=== PATIENT | female | born 1955 | race Caucasian/White ===

== ENCOUNTER 2017-08-17 00:02 | Inpatient (IN) | payer BC ==
[~2017-08-17] VITALS: Ht 160 cm; Wt 74.8 kg
[~2017-08-17 00:02] MED LIST: ALBUAER19 INH; AMB5 PO; AMOX500C3 PO; ATV5X PO; EFFSR150 PO; MRLP17X PO; MULT-506 PO; PRLSR20 PO; SNG10 PO; SYMIN160 INH; SYN75 PO; VENL75CA73 PO
[2017-08-17] MEDS ORDERED: SODIUM CHLORIDE 0.9% 1000ML 1,000 ML IV STA (00:23)
[2017-08-17] MEDS ORDERED: HYDROmorphone INJ 1 MG/ML SYR IV STA (00:23)
[2017-08-17] MEDS ORDERED: ONDANSETRON INJ 2 MG/ML 2 ML VIAL IV STA (00:23)
--- NOTE | 2017-08-17 00:23 | EMERGENCY ROOM VISIT NOTE ---
History Report prepared by Danish: Darío Clifton Under the Supervision of: Dr. Keanu Morrison M.D. First contact with patient: 00:17 Chief Complaint: DENTAL PAIN Stated Complaint: ABSCESSED TOOTH TOP LFT-FEVER,PAIN Nursing Triage Summary: patient states yesterday she was seen at her dentist to have an abcessed tooth drained and was placed on oral antibiotics. area to left side of face has increased swelling and pain. patient states she was given narcotic pain medication that is not helping. History of Present Illness The patient is a 62 year old female who presents to the Emergency Room with complaints of constant dental pain beginning 4 days ago. The patient states that she began to experience mild pain 4 days ago. She notes that when she woke up the next day, her pain was much worse. She reports that she also has facial swelling that began yesterday. The patient states that she went into the dentist yesterday, where she had a partial root canal done. She notes that her symptoms worsen when she swallows. She reports that she took pain medication 4 hours ago and is currently on amoxicillin. The patient states that she has no history of diabetes and infections, but has had an abscess in the past. Source of History: patient Onset: 4 days ago Position: teeth Timing: constant Modifying Factors (Worsening): other (swallowing) Note: She also complains of facial swelling. Review of Systems See HPI for pertinent positives & negatives. A total of 6 systems reviewed and were otherwise negative. 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 (4) GERD (gastroesophageal reflux disease) (5) Hypothyroidism (6) Seasonal allergic rhinitis Surgical Problems: (1) H/O lumpectomy (2) H/O mastectomy (3) H/O: hysterectomy (4) Hx of cholecystectomy (5) S/P eron (6) S/P left mastectomy (7) S/P partial thyroidectomy (8) S/P IVAN (total abdominal hysterectomy) Family History Diabetes mellitus FHx: cancer FHx: heart disease Hypertension Social History Smoking Status: Never Smoker Marital Status: Housing Status: lives with family Occupation Status: employed Current/Historical Medications Scheduled Amoxicillin (Amoxil), 500 MG PO TID Bupropion Hcl (Bupropion Hcl Er), 100 MG PO BID Fluticasone Propionate (Nasal) (Flonase Allergy Relief), 2 SPRAY NA DAILY Levothyroxine Sodium (Synthroid), 75 MCG PO QAM Multivitamin (Multivitamin), 1 TAB PO QAM Venlafaxine Hcl (Venlafaxine Hcl Er), 75 MG PO DAILY Scheduled PRN Albuterol Hfa (Ventolin Hfa), 2 PUFFS INH Q6H PRN for SOB/Wheezing Budesonide/Formoterol Fumarate (Symbicort 160/4.5 Inhaler), 1 PUFF INH BID PRN for SOB/Wheezing Lorazepam (Lorazepam), 0.5 MG PO DAILY PRN for Anxiety Omeprazole (Prilosec), 20 MG PO DAILY PRN for Heartburn Zolpidem Tartrate (Zolpidem Tartrate), 5 MG PO HS PRN for Insomnia Allergies Coded Allergies: Morphine (Unverified Allergy, Mild, epigastric MUSCLE SPASMS, 08/17/17) Sulfa Antibiotics (Verified Allergy, Unknown, HIVES, 08/17/17) Codeine (Verified Adverse Reaction, Mild, NAUSEA, 08/17/17) NAUSEA Physical Exam Vital Signs Date Time Temp Pulse Resp B/P (MAP) Pulse Ox O2 Delivery O2 Flow Rate FiO2 08/17/17 03:11 82 20 132/86 99 Nasal Cannula 4.0 08/17/17 01:41 89 16 149/94 92 Room Air 08/17/17 00:06 37.3 89 20 145/99 96 Room Air Physical Exam GENERAL: Patient is uncomfortable appearing and in moderate distress. HEENT: No acute trauma, normocephalic atraumatic, mucous membranes moist, no nasal congestion, no scleral icterus. Large swelling of left lower face, erythema primarily over maxillary sinus, carious exposed posterior upper left molar which is severely tender to palpation. NECK: No stridor, no adenopathy, no meningismus, trachea is midline. LUNGS: No dyspnea. Clear to auscultation and equal bilaterally. No wheeze, no rhonchi. HEART: Regular rate and rhythm. No murmurs, rubs, gallops appreciated. EXTREMITIES: Normal motion all extremities, no cyanosis, no edema. NEUROLOGIC: Alert and oriented, no acute motor or sensory deficits, no focal weakness, cranial nerves grossly intact. SKIN: No rash, no jaundice, no diaphoresis. Medical Decision & Procedures ER Provider Diagnostic Interpretation: Radiology results and stated below per my review and radiologist interpretation: CT FACIAL: Swelling and phlegmon involving the left side of the face. No drainable collection. Cervical adenopathy. Sinus mucosal thickening. Thickening and soft tissues of the nasal and hypopharynx. Secretions and debris in the hypopharynx. Retropharyngeal carotids, anatomic variant. Dental related disease with dental caries and periapical lucency on the left side. Radiologist: Ildefonso Perez M.D. Laboratory Results 08/17/17 00:55 Red Blood Count 4.90, Mean Corpuscular Volume 89.6, Mean Corpuscular Hemoglobin 31.4, Mean Corpuscular Hemoglobin Concent 35.1, Mean Platelet Volume 9.1, Neutrophils (%) (Auto) 79.5, Lymphocytes (%) (Auto) 13.4, Monocytes (%) (Auto) 5.8, Eosinophils (%) (Auto) 0.8, Basophils (%) (Auto) 0.3, Neutrophils # (Auto) 5.05, Lymphocytes # (Auto) 0.85, Monocytes # (Auto) 0.37, Eosinophils # (Auto) 0.05, Basophils # (Auto) 0.02 Test 08/17/17 00:55 08/17/17 01:03 White Blood Count 6.35 K/uL (4.8-10.8) Red Blood Count 4.90 M/uL (4.2-5.4) Hemoglobin 15.4 g/dL (12.0-16.0) Hematocrit 43.9 % (37-47) Mean Corpuscular Volume 89.6 fL (80-100) Mean Corpuscular Hemoglobin 31.4 pg (25-34) Mean Corpuscular Hemoglobin Concent 35.1 g/dl (32-36) Platelet Count 259 K/uL (130-400) Mean Platelet Volume 9.1 fL (7.4-10.4) Neutrophils (%) (Auto) 79.5 % Lymphocytes (%) (Auto) 13.4 % Monocytes (%) (Auto) 5.8 % Eosinophils (%) (Auto) 0.8 % Basophils (%) (Auto) 0.3 % Neutrophils # (Auto) 5.05 K/uL (1.4-6.5) Lymphocytes # (Auto) 0.85 K/uL (1.2-3.4) Monocytes # (Auto) 0.37 K/uL (0.11-0.59) Eosinophils # (Auto) 0.05 K/uL (0-0.5) Basophils # (Auto) 0.02 K/uL (0-0.2) RDW Standard Deviation 45.3 fL (36.4-46.3) RDW Coefficient of Variation 13.9 % (11.5-14.5) Immature Granulocyte % (Auto) 0.2 % Immature Granulocyte # (Auto) 0.01 K/uL (0.00-0.02) Prothrombin Time 10.0 SECONDS (9.0-12.0) Prothromb Time International Ratio 1.0 (0.9-1.1) C-Reactive Protein 9.11 mg/dl (0-0.29) Bedside Hemoglobin 15.3 g/dl (12.0-16.0) Bedside Hematocrit 45 % (37-47) Bedside Sodium 139 mEq/L (135-144) Bedside Potassium 4.1 mEq/L (3.3-5.0) Bedside Chloride 97 mEq/L (101-112) Bedside Total CO2 28 mEq/l (24-31) Anion Gap 18.0 mmol/L (16-25) Bedside Blood Urea Nitrogen 13 mg/dl (7-18) Bedside Creatinine 0.8 mg/dl (0.6-1.3) Bedside Glucose (other) 104 mg/dl (70-99) Bedside Ionized Calcium (Luiza) 1.06 mmol/l (1.12-1.32) Laboratory results as reviewed by me. Medications Administered Medications (Trade) Dose Ordered Sig/Leticia Route Start Time Stop Time Status Last Admin Dose Admin Hydromorphone HCl (Dilaudid Inj) 1 mg NOW STAT IV 08/17/17 00:23 08/17/17 00:26 DC 08/17/17 01:08 1 MG Ondansetron HCl (Zofran Inj) 4 mg NOW STAT IV 08/17/17 00:23 08/17/17 00:26 DC 08/17/17 01:07 4 MG Sodium Chloride 1,000 ml @ 999 mls/hr Q1H1M STAT IV 08/17/17 00:23 08/17/17 01:23 DC 08/17/17 01:07 999 MLS/HR Clindamycin Phosphate 600 mg/ Dextrose 54 ml @ 100 mls/hr ONE ONCE IV 08/17/17 00:30 08/17/17 01:02 DC 08/17/17 01:08 100 MLS/HR ED Course 0018: The patient was evaluated in room B12. A complete history and physical exam was performed. 0215: Upon reevaluation, the patient is stable. Discussed results and treatment plan with the patient. She verbalized understanding and agreement with the treatment plan. Discussed the patient's case with Zaida Siu. The patient will be evaluated for further management. Medical Decision Pleasant 62 yr old female with large left facial swelling secondary to dental infection. On amox with worsening swelling. Increased swelling even while here. Does have some oropharyngeal edema though no shob/swallowing difficulty nor does she complain of feeling of full throat/mouth thus I suspect this may be more chronic than from this current infection (but one more thing to monitor closely). She has significant > 50% left face swelling/erythema, has been on amox, has phlegmon on CT and lives ~ 1 hr away, thus I feel that bringing in for IV abx is completely reasonable. She is not septic at time of admission. Medication Reconcilliation Current Medication List: was personally reviewed by me Blood Pressure Screening Patient's blood pressure: Elevated blood pressure Elevated blood pressure will be monitored by hospitalist. Consults Time Called: [phone] Consulting Physician: Zaida Siu Returned Call: [phone] Discussed the patient's case. The patient will be evaluated for further treatment and disposition. Impression Primary Impression: Facial cellulitis Scribe Attestation The scribe's documentation has been prepared under my direction and personally reviewed by me in its entirety. I confirm that the note above accurately reflects all work, treatment, procedures, and medical decision making performed by me. Departure Information Dispostion Being Evaluated By Hospitalist Edgardo Best M.D. (PCP) Patient Instructions My [facility]
[2017-08-17] MEDS ORDERED: CLINDAMYCIN IV 600 MG in DEXTROSE 5% 50ML 50 ML IV ONE (00:30)
[2017-08-17 01:09] LABS: BASO % 0.3 %; BASO ABS # 0.02 K/uL (0-0.2); EOS % 0.8 %; EOS ABS # 0.05 K/uL (0-0.5); HEMATOCRIT 43.9 % (37-47); HEMOGLOBIN 15.4 g/dL (12.0-16.0); IG# 0.01 K/uL (0.00-0.02); LYMPH % 13.4 %; LYMPH ABS # 0.85 K/uL (1.2-3.4); MEAN CELL VOLUME 89.6 fL (80-100); MEAN CORPUSCULAR HEMOGLOBIN 31.4 pg (25-34); MEAN CORPUSCULAR HGB CONC 35.1 g/dl (32-36); MEAN PLATELET VOLUME 9.1 fL (7.4-10.4); MONO % 5.8 %; MONO ABS # 0.37 K/uL (0.11-0.59); NEUT % 79.5 %; NEUT ABS # 5.05 K/uL (1.4-6.5); PLATELET COUNT 259 K/uL (130-400); RED CELL DISTRIBUTION WIDTH CV 13.9 % (11.5-14.5); RED CELL DISTRIBUTION WIDTH SD 45.3 fL (36.4-46.3); WHITE BLOOD COUNT 6.35 K/uL (4.8-10.8)
[2017-08-17 01:27] LABS: ISTAT CREATININE 0.8 mg/dl (0.6-1.3); ISTAT IONIZED CALCIUM 1.06 mmol/l (1.12-1.32); ISTAT POTASSIUM 4.1 mEq/L (3.3-5.0)
[2017-08-17] MEDS ORDERED: OPTIRAY 320 IV PRN (01:45)
[2017-08-17] MEDS ORDERED: BUPR-266 PO (02:31)
[2017-08-17] MEDS ORDERED: VENL150T33 PO (02:32)
[2017-08-17] MEDS ORDERED: VNTHFA/IN INH (02:34)
[2017-08-17] MEDS ORDERED: BUDESONIDE/FORMOTEROL FUMARATE 160/4.5 60 PUFFS/INHALER INH PRN (04:15)
[2017-08-17] MEDS ORDERED: LORAZEPAM 0.5 MG TAB PO PRN (04:15)
[2017-08-17] MEDS ORDERED: ZOLPIDEM TARTRATE 5 MG TAB PO PRN (04:15)
[2017-08-17] MEDS ORDERED: ALBUTEROL HFA 8 GM INHALER INH PRN (04:15)
[2017-08-17] MEDS ORDERED: HYDROmorphone INJ 0.5 MG/0.5 ML SYR IV PRN (04:15)
[2017-08-17] MEDS ORDERED: ACETAMINOPHEN 325 MG TAB PO PRN (04:15)
[2017-08-17] MEDS ORDERED: ONDANSETRON INJ 2 MG/ML 2 ML VIAL IV PRN (04:15)
[2017-08-17] MEDS ORDERED: FLUT0.15 (04:17)
[2017-08-17] MEDS ORDERED: VENL-273 PO (04:17)
--- NOTE | 2017-08-17 04:26 | History and Physical ---
History & Physical Date & Time of Service: Aug 17, 2017 at 04:18 Chief Complaint: Abscessed Tooth Top Lft-Fever,Pain Primary Care Physician: Edgardo Aguilar M.D. History of Present Illness Source: patient, clinic records, hospital records 62 yo F presents with worsening facial pain and swelling after dental procedure earlier today. She reports that pain in her upper jaw area began on SAt (two days ago). Swelling began 24 hours ago and with the pain, she went into her dentist emergently and states that he saw alot of infection and left her with an open root canal. She was sent home with Amoxicillin of which she too two. She then developed a fever that concerned her, and in addition, states that the vicodin she was given did not control her pain well. She was hemodynamically stable and afebrile in the ER but looked uncomfortable so was given Dilaudid 1mg. She dropped her oxygen saturation in response to this and required supplementation. She does have some problems swallowing at baseline but denies any trouble breathing and states that her neck is not swollen and there is no involvement with her eye. She reports a cough two weeks ago but this has since resolved. She otherwise has no symptoms and is on a soft mechanical diet. Past Medical/Surgical History Medical Problems: (1) Depression Status: Chronic (2) Ductal carcinoma in situ (DCIS) of left breast Status: Chronic (3) GERD (gastroesophageal reflux disease) Status: Chronic (4) Hypothyroidism Status: Chronic (5) Seasonal allergic rhinitis Status: Chronic Surgical Problems: (1) S/P eron Status: Chronic (2) S/P left mastectomy Status: Chronic (3) S/P partial thyroidectomy Status: Resolved (4) S/P IVAN (total abdominal hysterectomy) Status: Chronic Family History Diabetes mellitus FHx: cancer FHx: heart disease Hypertension Social History Smoking Status: Never Smoker Smokeless Tobacco Use: No Alcohol Use: none Drug Use: none Marital Status: Housing status: lives with family Occupational Status: employed Immunizations History of Influenza Vaccine: No History of Tetanus Vaccine?: Yes Tetanus Immunization Date: Sep 07, 2010 History of Pneumococcal: Yes History of Hepatitis B Vaccine: No Multi-Drug Resistant Organisms History of MDRO: No Allergies Coded Allergies: Morphine (Unverified Allergy, Mild, epigastric MUSCLE SPASMS, 08/17/17) Sulfa Antibiotics (Verified Allergy, Unknown, HIVES, 08/17/17) Codeine (Verified Adverse Reaction, Mild, NAUSEA, 08/17/17) NAUSEA Home Medications Scheduled Amoxicillin (Amoxil), 500 MG PO TID Bupropion Hcl (Bupropion Hcl Er), 100 MG PO BID Fluticasone Propionate (Nasal) (Flonase Allergy Relief), 2 SPRAY NA DAILY Levothyroxine Sodium (Synthroid), 75 MCG PO QAM Multivitamin (Multivitamin), 1 TAB PO QAM Venlafaxine Hcl (Venlafaxine Hcl Er), 75 MG PO DAILY Scheduled PRN Albuterol Hfa (Ventolin Hfa), 2 PUFFS INH Q6H PRN for SOB/Wheezing Budesonide/Formoterol Fumarate (Symbicort 160/4.5 Inhaler), 1 PUFF INH BID PRN for SOB/Wheezing Lorazepam (Lorazepam), 0.5 MG PO DAILY PRN for Anxiety Omeprazole (Prilosec), 20 MG PO DAILY PRN for Heartburn Zolpidem Tartrate (Zolpidem Tartrate), 5 MG PO HS PRN for Insomnia Review of Systems AT least ten systems were reviewed and negative except as indicated in HPI above. Physical Exam Vital Signs Date Time Temp Pulse Resp B/P (MAP) Pulse Ox O2 Delivery O2 Flow Rate FiO2 08/17/17 04:10 81 20 141/90 99 Room Air 08/17/17 03:11 82 20 132/86 99 Nasal Cannula 4.0 08/17/17 01:41 89 16 149/94 92 Room Air 08/17/17 00:06 37.3 89 20 145/99 96 Room Air General Appearance: WD/WN, no apparent distress Head: normocephalic, atraumatic Eyes: normal inspection, PERRL, sclerae normal ENT: + pertinent finding (L facial swelling with warmth and erythema in the localized area, no redness spreading into the eye or under the chin, no SM LAD, significant swelling in soft palate on L and swelling of pharynx without erythmea. No evidence of pus or open wound) Neck: supple, no adenopathy, trachea midline Respiratory/Chest: lungs clear, normal breath sounds, no respiratory distress, no accessory muscle use Cardiovascular: regular rate, rhythm, no edema, no gallop, no JVD, no murmur, normal peripheral pulses Abdomen/GI: normal bowel sounds, non tender, soft Extremities/Musculoskelatal: normal inspection, no pedal edema Neurologic/Psych: director of events II-XII nml as tested, no motor/sensory deficits, alert, normal mood/affect, oriented x 3 Skin: normal color, warm/dry, no rash, + pertinent finding (facial swelling as above. ) Diagnostics Laboratory Results 08/17/17 00:55 Red Blood Count 4.90, Mean Corpuscular Volume 89.6, Mean Corpuscular Hemoglobin 31.4, Mean Corpuscular Hemoglobin Concent 35.1, Mean Platelet Volume 9.1, Neutrophils (%) (Auto) 79.5, Lymphocytes (%) (Auto) 13.4, Monocytes (%) (Auto) 5.8, Eosinophils (%) (Auto) 0.8, Basophils (%) (Auto) 0.3, Neutrophils # (Auto) 5.05, Lymphocytes # (Auto) 0.85, Monocytes # (Auto) 0.37, Eosinophils # (Auto) 0.05, Basophils # (Auto) 0.02 Test 08/17/17 00:55 08/17/17 01:03 08/17/17 04:07 White Blood Count 6.35 K/uL (4.8-10.8) Red Blood Count 4.90 M/uL (4.2-5.4) Hemoglobin 15.4 g/dL (12.0-16.0) Hematocrit 43.9 % (37-47) Mean Corpuscular Volume 89.6 fL (80-100) Mean Corpuscular Hemoglobin 31.4 pg (25-34) Mean Corpuscular Hemoglobin Concent 35.1 g/dl (32-36) Platelet Count 259 K/uL (130-400) Mean Platelet Volume 9.1 fL (7.4-10.4) Neutrophils (%) (Auto) 79.5 % Lymphocytes (%) (Auto) 13.4 % Monocytes (%) (Auto) 5.8 % Eosinophils (%) (Auto) 0.8 % Basophils (%) (Auto) 0.3 % Neutrophils # (Auto) 5.05 K/uL (1.4-6.5) Lymphocytes # (Auto) 0.85 K/uL (1.2-3.4) Monocytes # (Auto) 0.37 K/uL (0.11-0.59) Eosinophils # (Auto) 0.05 K/uL (0-0.5) Basophils # (Auto) 0.02 K/uL (0-0.2) RDW Standard Deviation 45.3 fL (36.4-46.3) RDW Coefficient of Variation 13.9 % (11.5-14.5) Immature Granulocyte % (Auto) 0.2 % Immature Granulocyte # (Auto) 0.01 K/uL (0.00-0.02) C-Reactive Protein 9.11 mg/dl (0-0.29) Bedside Hemoglobin 15.3 g/dl (12.0-16.0) Bedside Hematocrit 45 % (37-47) Bedside Sodium 139 mEq/L (135-144) Bedside Potassium 4.1 mEq/L (3.3-5.0) Bedside Chloride 97 mEq/L (101-112) Bedside Total CO2 28 mEq/l (24-31) Anion Gap 18.0 mmol/L (16-25) Bedside Blood Urea Nitrogen 13 mg/dl (7-18) Bedside Creatinine 0.8 mg/dl (0.6-1.3) Bedside Glucose (other) 104 mg/dl (70-99) Bedside Ionized Calcium (Luiza) 1.06 mmol/l (1.12-1.32) Results Past 24 Hours Test 08/17/17 00:55 08/17/17 01:03 08/17/17 04:07 Range/Units White Blood Count 6.35 4.8-10.8 K/uL Red Blood Count 4.90 4.2-5.4 M/uL Hemoglobin 15.4 12.0-16.0 g/dL Hematocrit 43.9 37-47 % Mean Corpuscular Volume 89.6 80-100 fL Mean Corpuscular Hemoglobin 31.4 25-34 pg Mean Corpuscular Hemoglobin Concent 35.1 32-36 g/dl Platelet Count 259 130-400 K/uL Mean Platelet Volume 9.1 7.4-10.4 fL Neutrophils (%) (Auto) 79.5 % Lymphocytes (%) (Auto) 13.4 % Monocytes (%) (Auto) 5.8 % Eosinophils (%) (Auto) 0.8 % Basophils (%) (Auto) 0.3 % Neutrophils # (Auto) 5.05 1.4-6.5 K/uL Lymphocytes # (Auto) 0.85 1.2-3.4 K/uL Monocytes # (Auto) 0.37 0.11-0.59 K/uL Eosinophils # (Auto) 0.05 0-0.5 K/uL Basophils # (Auto) 0.02 0-0.2 K/uL RDW Standard Deviation 45.3 36.4-46.3 fL RDW Coefficient of Variation 13.9 11.5-14.5 % Immature Granulocyte % (Auto) 0.2 % Immature Granulocyte # (Auto) 0.01 0.00-0.02 K/uL C-Reactive Protein 9.11 0-0.29 mg/dl Bedside Hemoglobin 15.3 12.0-16.0 g/dl Bedside Hematocrit 45 37-47 % Bedside Sodium 139 135-144 mEq/L Bedside Potassium 4.1 3.3-5.0 mEq/L Bedside Chloride 97 101-112 mEq/L Bedside Total CO2 28 24-31 mEq/l Anion Gap 18.0 16-25 mmol/L Bedside Blood Urea Nitrogen 13 7-18 mg/dl Bedside Creatinine 0.8 0.6-1.3 mg/dl Bedside Glucose (other) 104 70-99 mg/dl Bedside Ionized Calcium (Uliza) 1.06 1.12-1.32 mmol/l Diagnostic Radiology MAXILLOFACIAL CT WITH CONTRAST CLINICAL HISTORY: Left maxillary/facial swelling. COMPARISON STUDY: No previous studies for comparison. TECHNIQUE: Maxillofacial CT was performed following intravenous injection of 93 cc Optiray 320 IV. Coronal and sagittal reformats were viewed. FINDINGS: Visualized portions of the intracranial contents are unremarkable. Retropharyngeal carotids are incidentally noted. There is moderate left inferior facial infiltration. Note is made of a periapical abscess and cavity of the left second maxillary molar. There is an adjacent 1.5 x 0.7 cm rim-enhancing fluid collection along the posterior aspect of this tooth consistent with an abscess. There is mild left maxillary sinus mucosal thickening. Parotid and submandibular glands are unremarkable. Mild asymmetric left-sided cervical lymphadenopathy is likely reactive. IMPRESSION: 1. Periapical abscess and cavity of the left second maxillary molar with an adjacent 1.5 x 0.7 cm abscess. Moderate left inferior facial infiltration consistent with cellulitis. 2. Mild asymmetric left cervical lymphadenopathy which is likely reactive. Impression Assessment and Plan 62 yo F with dental abscess and subsequent facial swelling causing pain. Facial cellulitis 2/2 dental abscess-clindamycin. Consider consulting ENT as OFMS is not available. Hypoxia-temporary 2/2 iatrogenic narcotic, no BAYRON symptoms Hypothyroidism-Synthroid Depression-Welbutrin and Effexor DVT proph-Lovenox Full Code Dispo-to floor DO [facility] Telemetry Resuscitation Status FULL RESUSCITATION VTE Prophylaxis VTE Risk Assessment Done? Y/N: Yes Risk Level: Moderate Given or contraindicated: Enoxaparin (Lovenox)SQ
[2017-08-17] MEDS ORDERED: POLYETHYLENE (MIRALAX) 17 GM PACK PO PRN (04:30)
[2017-08-17 04:53] VITALS: BP 141/90; TEMP 37.3; Ht 160 cm; Wt 74.8 kg
[2017-08-17] MEDS: LEVOTHYROXINE 75 MCG TAB PO SCH (06:16)
[2017-08-17] MEDS: OXYCODONE/ACETAMINOPHEN 7.5-325 TAB PO PRN ×3 (06:19→16:36)
[2017-08-17 07:23] VITALS: BP 103/65; PULSE 75; TEMP 36.6; O2SAT 94
--- NOTE | 2017-08-17 08:17 | DIAGNOSTIC IMAGING REPORT ---
MAXILLOFACIAL CT WITH CONTRAST CLINICAL HISTORY: Left maxillary/facial swelling. COMPARISON STUDY: No previous studies for comparison. TECHNIQUE: Maxillofacial CT was performed following intravenous injection of 93 cc Optiray 320 IV. Coronal and sagittal reformats were viewed. FINDINGS: Visualized portions of the intracranial contents are unremarkable. Retropharyngeal carotids are incidentally noted. There is moderate left inferior facial infiltration. Note is made of a periapical abscess and cavity of the left second maxillary molar. There is an adjacent 1.5 x 0.7 cm rim-enhancing fluid collection along the posterior aspect of this tooth consistent with an abscess. There is mild left maxillary sinus mucosal thickening. Parotid and submandibular glands are unremarkable. Mild asymmetric left-sided cervical lymphadenopathy is likely reactive. IMPRESSION: 1. Periapical abscess and cavity of the left second maxillary molar with an adjacent 1.5 x 0.7 cm abscess. Moderate left inferior facial infiltration consistent with cellulitis. 2. Mild asymmetric left cervical lymphadenopathy which is likely reactive. Electronically signed by: Chris Ludwig M.D. 08/17/2017 8:16 AM Dictated Date/Time: 08/17/2017 7:49 AM
[2017-08-17] MEDS: FLUTICASONE PROPIONATE NA SPR 16 GM BTL SCH (08:23)
[2017-08-17] MEDS: MULTIVITAMIN TAB PO SCH (08:26)
[2017-08-17] MEDS: VENLAFAXINE HCL XR 75 MG CAPXR PO SCH (08:26)
[2017-08-17] MEDS: BuPROPion SR 100 MG TABCR PO SCH ×2 (08:26→20:12)
[2017-08-17] MEDS: PANTOprazole SOD 40 MG TAB PO SCH (08:26)
[2017-08-17] MEDS: ENOXAPARIN 40 MG/0.4 ML SYR SQ SCH (08:28)
[2017-08-17] MEDS: CLINDAMYCIN IV 600 MG in DEXTROSE 5% 50ML 50 ML IV SCH ×2 (09:35→16:36)
[2017-08-17 15:16] VITALS: BP 101/65; PULSE 74; TEMP 36.5; O2SAT 96
--- NOTE | 2017-08-17 17:46 | Progress Note ---
Subjective Date of Service: Aug 17, 2017. Subjective Pt evaluation today including: conversation w/ patient, physical exam, lab review, review of studies, review of inpatient medication list Saw/examined the patient in room 460 Presented to [facility] due to a dental abscess that worsened. She was seen by a dentist on 08/16; started on amoxicillin and had a partial root canal She noticed swelling on the L side of her face and pain worsened, so she presented here. I saw her today, and she feels the swelling has improved. Pain improved and tolerating PO intake. Problem List Medical Problems: (1) Facial cellulitis Status: Acute Review of Systems Constitutional: No fever, No chills ENT: + see HPI, + dental problems, No trouble swallowing Respiratory: No shortness of breath Cardiac: No chest pain Medications Current Inpatient Medications Medications (Trade) Dose Ordered Sig/Leticia Route Start Time Stop Time Status Last Admin Dose Admin Ioversol (Optiray 320) 100 ml UD PRN IV 08/17/17 01:45 08/21/17 01:44 Enoxaparin Sodium (Lovenox Inj) 40 mg DAILY SQ 08/17/17 08:00 09/16/17 08:59 08/17/17 08:28 40 MG Acetaminophen (Tylenol Tab) 650 mg Q4H PRN PO 08/17/17 04:15 09/16/17 04:14 Polyethylene (Miralax Powder Packet) 17 gm DAILY PRN PO 08/17/17 04:30 09/16/17 04:29 Ondansetron HCl (Zofran Inj) 4 mg Q6H PRN IV 08/17/17 04:15 09/16/17 04:14 Clindamycin Phosphate 600 mg/ Dextrose 54 ml @ 100 mls/hr Q8H IV 08/17/17 09:00 08/27/17 08:59 08/17/17 16:36 100 MLS/HR Oxycodone/ Acetaminophen (Percocet 7.5-325MG Tab) 1 tab Q4H PRN PO 08/17/17 04:15 08/31/17 04:14 08/17/17 16:36 1 TAB Hydromorphone HCl (Dilaudid Inj) 0.25 mg Q4H PRN IV 08/17/17 04:15 08/31/17 04:14 Albuterol (Ventolin Hfa Inhaler) 2 puffs Q6H PRN INH 08/17/17 04:15 09/16/17 04:14 Budesonide/ Formoterol Fumarate (Symbicort 160/ 4.5 Inh) 120 puffs BID PRN INH 08/17/17 04:15 09/16/17 04:14 Bupropion HCl (Wellbutrin-Sr Tab) 100 mg BID PO 08/17/17 08:00 09/16/17 08:59 08/17/17 08:26 100 MG Fluticasone Propionate (Flonase Nasal [place]) 2 sprays DAILY NA 08/17/17 08:00 09/16/17 08:59 08/17/17 08:23 2 SPRAYS Levothyroxine Sodium (Synthroid Tab) 75 mcg DAILYBB PO 08/17/17 06:30 09/16/17 06:59 08/17/17 06:16 75 MCG Lorazepam (Ativan Tab) 0.5 mg DAILY PRN PO 08/17/17 04:15 09/16/17 04:14 Multivitamins (Multivitamin Tab) 1 tab QAM PO 08/17/17 08:00 09/16/17 08:59 08/17/17 08:26 1 TAB Venlafaxine HCl (effeXOR EXTENDED REL CAP) 75 mg DAILY PO 08/17/17 08:00 09/16/17 08:59 08/17/17 08:26 75 MG Zolpidem Tartrate (Ambien Tab) 5 mg HS PRN PO 08/17/17 04:15 09/16/17 04:14 Pantoprazole Sodium (Protonix Tab) 40 mg QAM PO 08/17/17 08:00 09/16/17 08:59 08/17/17 08:26 40 MG Objective Vital Signs Date Time Temp Pulse Resp B/P (MAP) Pulse Ox O2 Delivery O2 Flow Rate FiO2 08/17/17 16:10 Room Air 08/17/17 15:16 36.5 74 18 101/65 (77) 96 Room Air 08/17/17 07:50 Room Air 08/17/17 07:23 36.6 75 18 103/65 (78) 94 Room Air 08/17/17 04:53 37.3 20 141/90 Room Air 08/17/17 04:10 81 20 141/90 99 Room Air 08/17/17 03:11 82 20 132/86 99 Nasal Cannula 4.0 08/17/17 01:41 89 16 149/94 92 Room Air 08/17/17 00:06 37.3 89 20 145/99 96 Room Air Physical Exam General Appearance: no apparent distress ENT: + pertinent finding (L side of the face is swollen, warm to touch) Respiratory/Chest: lungs clear, normal breath sounds, no respiratory distress, no accessory muscle use Cardiovascular: regular rate, rhythm, no edema, no murmur Laboratory Results Last 24 Hours Test 08/17/17 00:55 08/17/17 01:03 08/17/17 07:54 08/17/17 11:33 White Blood Count 6.35 K/uL Red Blood Count 4.90 M/uL Hemoglobin 15.4 g/dL Hematocrit 43.9 % Mean Corpuscular Volume 89.6 fL Mean Corpuscular Hemoglobin 31.4 pg Mean Corpuscular Hemoglobin Concent 35.1 g/dl Platelet Count 259 K/uL Mean Platelet Volume 9.1 fL Neutrophils (%) (Auto) 79.5 % Lymphocytes (%) (Auto) 13.4 % Monocytes (%) (Auto) 5.8 % Eosinophils (%) (Auto) 0.8 % Basophils (%) (Auto) 0.3 % Neutrophils # (Auto) 5.05 K/uL Lymphocytes # (Auto) 0.85 K/uL Monocytes # (Auto) 0.37 K/uL Eosinophils # (Auto) 0.05 K/uL Basophils # (Auto) 0.02 K/uL RDW Standard Deviation 45.3 fL RDW Coefficient of Variation 13.9 % Immature Granulocyte % (Auto) 0.2 % Immature Granulocyte # (Auto) 0.01 K/uL Prothrombin Time 10.0 SECONDS Prothromb Time International Ratio 1.0 C-Reactive Protein 9.11 mg/dl Bedside Hemoglobin 15.3 g/dl Bedside Hematocrit 45 % Bedside Sodium 139 mEq/L Bedside Potassium 4.1 mEq/L Bedside Chloride 97 mEq/L Bedside Total CO2 28 mEq/l Anion Gap 18.0 mmol/L Bedside Blood Urea Nitrogen 13 mg/dl Bedside Creatinine 0.8 mg/dl Bedside Glucose (other) 104 mg/dl Bedside Ionized Calcium (Luiza) 1.06 mmol/l Bedside Glucose 86 mg/dl 90 mg/dl Assessment and Plan This is a 62 year old female with a PMH of depression and hypothyroidism presents with dental infection and worsening swelling/pain Odontogenic Abscess and Cellulitis patient with periapical abscess - facial CT started on IV clindamycin, with clinical improvement we will monitor and possible discharge on clindamycin with outpatient dental consultation if no improvement, may need maxillofacial surgery to examine the patient continue Percocet PRN for pain, which has been successful thus far Depression continue home mediations Hypothyroidism continue Synthroid Asthma continue Symbicort DVT ppx Lovenox FULL CODE
[2017-08-17 23:58] VITALS: BP 123/79; PULSE 76; TEMP 36.8; O2SAT 94
[2017-08-18] MEDS: OXYCODONE/ACETAMINOPHEN 7.5-325 TAB PO PRN ×3 (01:48→21:28)
[2017-08-18] MEDS: CLINDAMYCIN IV 600 MG in DEXTROSE 5% 50ML 50 ML IV SCH ×3 (01:48→17:34)
[2017-08-18] MEDS: LEVOTHYROXINE 75 MCG TAB PO SCH (05:44)
[2017-08-18] MEDS: ENOXAPARIN 40 MG/0.4 ML SYR SQ SCH (07:49)
[2017-08-18] MEDS: FLUTICASONE PROPIONATE NA SPR 16 GM BTL SCH (07:49)
[2017-08-18] MEDS: VENLAFAXINE HCL XR 75 MG CAPXR PO SCH (07:50)
[2017-08-18] MEDS: MULTIVITAMIN TAB PO SCH (07:50)
[2017-08-18] MEDS: BuPROPion SR 100 MG TABCR PO SCH ×2 (07:50→19:32)
[2017-08-18] MEDS: PANTOprazole SOD 40 MG TAB PO SCH (07:50)
[2017-08-18 08:09] VITALS: BP 118/78; PULSE 68; TEMP 36.7; O2SAT 95
[2017-08-18 08:15] VITALS: O2SAT 95
--- NOTE | 2017-08-18 09:30 | Clinical Documentation Query ---
CLINICAL DOCUMENTATION QUERY Dr. RUSSELL, In your clinical opinion is this patient being managed for: ( ) Dental abscess/facial cellulitis due to partial root canal ( X ) Dental abscess/facial cellulitis not due to partial root canal ( ) Not Agree ( ) Other explanation of clinical findings (Please Explain) ( ) Unable to determine (Please Define) ( ) Need to Discuss The medical record reflects the following clinical findings, treatment, and risk factors. Clinical Indicators:62 yo female presenting with a dental abscess and facial cellulitis following a partial root canal. Was started on outpatient antibiotics. Treatment: IV clindamycin, IV fluid bolus, CT face Risk Factors: partial root canal Please clarify and document your clinical opinion in the progress notes and discharge summary. Terms such as "probable", "suspected", "likely", "questionable", "possible", or "still to be ruled out" are acceptable. IF IN AGREEMENT, YOU MUST DOCUMENT ABOVE DIAGNOSTIC STATEMENT IN DAILY PROGRESS NOTES AND DISCHARGE SUMMARY. This document is not part of the patient's record. Thank You, Meghan Rosa RN [phone]
--- NOTE | 2017-08-18 16:49 | Progress Note ---
Subjective Date of Service: Aug 18, 2017. Subjective Pt evaluation today including: conversation w/ patient, physical exam, lab review, review of studies, review of inpatient medication list Saw/examined the patient in room 460 No problems/issues to note today; swelling of the L side of her face is improving Denies fevers/chills Pain controlled with medications Denies problems with PO intake Problem List Medical Problems: (1) Facial cellulitis Status: Acute Review of Systems Constitutional: No fever, No chills ENT: + dental problems, No trouble swallowing Respiratory: No wheezing, No shortness of breath, No dyspnea on exertion Abdomen: No nausea, No vomiting Medications Current Inpatient Medications Medications (Trade) Dose Ordered Sig/Leticia Route Start Time Stop Time Status Last Admin Dose Admin Ioversol (Optiray 320) 100 ml UD PRN IV 08/17/17 01:45 08/21/17 01:44 Enoxaparin Sodium (Lovenox Inj) 40 mg DAILY SQ 08/17/17 08:00 09/16/17 08:59 08/18/17 07:49 40 MG Acetaminophen (Tylenol Tab) 650 mg Q4H PRN PO 08/17/17 04:15 09/16/17 04:14 08/18/17 07:48 650 MG Polyethylene (Miralax Powder Packet) 17 gm DAILY PRN PO 08/17/17 04:30 09/16/17 04:29 Ondansetron HCl (Zofran Inj) 4 mg Q6H PRN IV 08/17/17 04:15 09/16/17 04:14 Clindamycin Phosphate 600 mg/ Dextrose 54 ml @ 100 mls/hr Q8H IV 08/17/17 09:00 08/27/17 08:59 08/18/17 08:54 100 MLS/HR Oxycodone/ Acetaminophen (Percocet 7.5-325MG Tab) 1 tab Q4H PRN PO 08/17/17 04:15 08/31/17 04:14 08/18/17 10:28 1 TAB Hydromorphone HCl (Dilaudid Inj) 0.25 mg Q4H PRN IV 08/17/17 04:15 08/31/17 04:14 Albuterol (Ventolin Hfa Inhaler) 2 puffs Q6H PRN INH 08/17/17 04:15 09/16/17 04:14 Budesonide/ Formoterol Fumarate (Symbicort 160/ 4.5 Inh) 120 puffs BID PRN INH 08/17/17 04:15 09/16/17 04:14 Bupropion HCl (Wellbutrin-Sr Tab) 100 mg BID PO 08/17/17 08:00 09/16/17 08:59 08/18/17 07:50 100 MG Fluticasone Propionate (Flonase Nasal [place]) 2 sprays DAILY NA 08/17/17 08:00 09/16/17 08:59 08/18/17 07:49 2 SPRAYS Levothyroxine Sodium (Synthroid Tab) 75 mcg DAILYBB PO 08/17/17 06:30 09/16/17 06:59 08/18/17 05:44 75 MCG Lorazepam (Ativan Tab) 0.5 mg DAILY PRN PO 08/17/17 04:15 09/16/17 04:14 Multivitamins (Multivitamin Tab) 1 tab QAM PO 08/17/17 08:00 09/16/17 08:59 08/18/17 07:50 1 TAB Venlafaxine HCl (effeXOR EXTENDED REL CAP) 75 mg DAILY PO 08/17/17 08:00 09/16/17 08:59 08/18/17 07:50 75 MG Zolpidem Tartrate (Ambien Tab) 5 mg HS PRN PO 08/17/17 04:15 09/16/17 04:14 Pantoprazole Sodium (Protonix Tab) 40 mg QAM PO 08/17/17 08:00 09/16/17 08:59 08/18/17 07:50 40 MG Objective Vital Signs Date Time Temp Pulse Resp B/P (MAP) Pulse Ox O2 Delivery O2 Flow Rate FiO2 08/18/17 08:15 95 Room Air 08/18/17 08:09 36.7 68 14 118/78 (91) 95 Room Air 08/18/17 08:00 Room Air 08/18/17 00:00 Room Air 08/17/17 23:58 36.8 76 18 123/79 (94) 94 Room Air Physical Exam General Appearance: no apparent distress ENT: + pertinent finding (L side of the face is less swollen, tender to touch around the L lower jaw) Laboratory Results Last 24 Hours Test 08/17/17 19:55 Bedside Glucose 107 mg/dl Assessment and Plan This is a 62 year old female with a PMH of depression and hypothyroidism presents with dental infection and worsening swelling/pain Odontogenic Abscess and Cellulitis 08/18 plan is to continue IV Clinda for today continue pain medications as needed plan for repeat maxillofacial CT to follow-up on the abscess plan to d/c in 1-2 days on oral clindamycin with outpatient dental follow-up 08/17 patient with periapical abscess - facial CT started on IV clindamycin, with clinical improvement we will monitor and possible discharge on clindamycin with outpatient dental consultation if no improvement, may need maxillofacial surgery to examine the patient continue Percocet PRN for pain, which has been successful thus far Depression continue home mediations Hypothyroidism continue Synthroid Asthma continue Symbicort DVT ppx Lovenox FULL CODE
[2017-08-18 23:00] VITALS: BP 137/85; PULSE 61; TEMP 36.4; O2SAT 97
[2017-08-19] MEDS: CLINDAMYCIN IV 600 MG in DEXTROSE 5% 50ML 50 ML IV SCH ×2 (00:23→09:27)
[2017-08-19] MEDS ORDERED: OPTIRAY 320 IV PRN (06:00)
[2017-08-19] MEDS: LEVOTHYROXINE 75 MCG TAB PO SCH (06:33)
[2017-08-19 07:14] LABS: HEMATOCRIT 41.8 % (37-47); HEMOGLOBIN 14.8 g/dL (12.0-16.0); MEAN CELL VOLUME 88.4 fL (80-100); MEAN CORPUSCULAR HEMOGLOBIN 31.3 pg (25-34); MEAN CORPUSCULAR HGB CONC 35.4 g/dl (32-36); MEAN PLATELET VOLUME 8.8 fL (7.4-10.4); PLATELET COUNT 290 K/uL (130-400); RED CELL DISTRIBUTION WIDTH CV 13.9 % (11.5-14.5); RED CELL DISTRIBUTION WIDTH SD 44.9 fL (36.4-46.3); WHITE BLOOD COUNT 4.07 K/uL (4.8-10.8)
[2017-08-19 07:28] VITALS: BP 138/79; PULSE 69; TEMP 36.6; O2SAT 97
[2017-08-19 07:43] LABS: CALCIUM 8.9 mg/dl (8.5-10.1); CREATININE 0.75 mg/dl (0.60-1.20); POTASSIUM 3.9 mmol/L (3.5-5.1)
[2017-08-19] MEDS: BuPROPion SR 100 MG TABCR PO SCH (07:49)
[2017-08-19] MEDS: VENLAFAXINE HCL XR 75 MG CAPXR PO SCH (07:50)
[2017-08-19] MEDS: MULTIVITAMIN TAB PO SCH (07:50)
[2017-08-19] MEDS: ENOXAPARIN 40 MG/0.4 ML SYR SQ SCH (07:50)
[2017-08-19] MEDS: FLUTICASONE PROPIONATE NA SPR 16 GM BTL SCH (07:50)
[2017-08-19] MEDS: PANTOprazole SOD 40 MG TAB PO SCH (07:50)
--- NOTE | 2017-08-19 09:15 | DIAGNOSTIC IMAGING REPORT ---
MAXILLOFACIAL CT WITH CONTRAST CLINICAL HISTORY: Follow up periapical abscess. Facial cellulitis. COMPARISON STUDY: Maxillofacial CT August 17, 2017. TECHNIQUE: Maxillofacial CT was performed following intravenous injection of 114 cc of Optiray 320 IV. Sagittal and coronal reconstructions were viewed. FINDINGS: Visualized portions of the intracranial contents are unremarkable. Orbits are within normal limits. There are postoperative findings within the sinuses. There is mild mucosal thickening of the sinuses. There is a cavity and periapical lucency of the left second maxillary molar, as shown on CT of August 17, 2017. A small adjacent peripheral enhancing fluid collection has decreased in size. This collection now measures 1.1 x 0.6 cm. It previously measured 1.5 x 0.7 cm. This suggests a small abscess. No additional abscesses are identified. Mild asymmetric left cervical lymphadenopathy is likely reactive. Epiglottis is normal. No parotid or submandibular abnormality is present. Facial infiltration has improved. IMPRESSION: 1. Periapical abscess and cavity of the left second maxillary molar. Associated adjacent abscess has decreased in size since CT of August 17, 2017, now measuring 1.1 x 0.6 cm. 2. Interval improvement in left facial cellulitis. Electronically signed by: Chris Ludwig M.D. 08/19/2017 9:13 AM Dictated Date/Time: 08/19/2017 9:02 AM
[2017-08-19] MEDS ORDERED: CLC150 PO (11:44)
[2017-08-19] MEDS ORDERED: OXYC-57 PO (11:44)
[2017-08-19] MEDS ORDERED: PRT40 PO (11:44)
--- NOTE | 2017-08-19 12:24 | Progress Note ---
Subjective Date of Service: Aug 19, 2017. Subjective Pt evaluation today including: conversation w/ patient, physical exam, lab review, review of studies, review of inpatient medication list Saw/examined the patient in room 460 No problems/issues to note today facial cellulitis improved, no problems with PO intake Problem List Medical Problems: (1) Facial cellulitis Status: Acute Review of Systems Constitutional: No fever, No chills Eyes: No worsening of vision ENT: + dental problems, No hearing loss, No nasal symptoms, No trouble swallowing Medications Current Inpatient Medications Medications (Trade) Dose Ordered Sig/Leticia Route Start Time Stop Time Status Last Admin Dose Admin Ioversol (Optiray 320) 100 ml UD PRN IV 08/17/17 01:45 08/21/17 01:44 Enoxaparin Sodium (Lovenox Inj) 40 mg DAILY SQ 08/17/17 08:00 09/16/17 08:59 08/19/17 07:50 40 MG Acetaminophen (Tylenol Tab) 650 mg Q4H PRN PO 08/17/17 04:15 09/16/17 04:14 08/18/17 07:48 650 MG Polyethylene (Miralax Powder Packet) 17 gm DAILY PRN PO 08/17/17 04:30 09/16/17 04:29 Ondansetron HCl (Zofran Inj) 4 mg Q6H PRN IV 08/17/17 04:15 09/16/17 04:14 Clindamycin Phosphate 600 mg/ Dextrose 54 ml @ 100 mls/hr Q8H IV 08/17/17 09:00 08/27/17 08:59 08/19/17 09:27 100 MLS/HR Oxycodone/ Acetaminophen (Percocet 7.5-325MG Tab) 1 tab Q4H PRN PO 08/17/17 04:15 08/31/17 04:14 08/18/17 21:28 1 TAB Hydromorphone HCl (Dilaudid Inj) 0.25 mg Q4H PRN IV 08/17/17 04:15 08/31/17 04:14 Albuterol (Ventolin Hfa Inhaler) 2 puffs Q6H PRN INH 08/17/17 04:15 09/16/17 04:14 Budesonide/ Formoterol Fumarate (Symbicort 160/ 4.5 Inh) 120 puffs BID PRN INH 08/17/17 04:15 09/16/17 04:14 Bupropion HCl (Wellbutrin-Sr Tab) 100 mg BID PO 08/17/17 08:00 09/16/17 08:59 08/19/17 07:49 100 MG Fluticasone Propionate (Flonase Nasal [place]) 2 sprays DAILY NA 08/17/17 08:00 09/16/17 08:59 08/19/17 07:50 2 SPRAYS Levothyroxine Sodium (Synthroid Tab) 75 mcg DAILYBB PO 08/17/17 06:30 09/16/17 06:59 08/19/17 06:33 75 MCG Lorazepam (Ativan Tab) 0.5 mg DAILY PRN PO 08/17/17 04:15 09/16/17 04:14 Multivitamins (Multivitamin Tab) 1 tab QAM PO 08/17/17 08:00 09/16/17 08:59 08/19/17 07:50 1 TAB Venlafaxine HCl (effeXOR EXTENDED REL CAP) 75 mg DAILY PO 08/17/17 08:00 09/16/17 08:59 08/19/17 07:50 75 MG Zolpidem Tartrate (Ambien Tab) 5 mg HS PRN PO 08/17/17 04:15 09/16/17 04:14 Pantoprazole Sodium (Protonix Tab) 40 mg QAM PO 08/17/17 08:00 09/16/17 08:59 08/19/17 07:50 40 MG Ioversol (Optiray 320) 100 ml UD PRN IV 08/19/17 06:00 08/23/17 05:59 Objective Vital Signs Date Time Temp Pulse Resp B/P (MAP) Pulse Ox O2 Delivery O2 Flow Rate FiO2 08/19/17 08:00 Room Air 08/19/17 07:28 36.6 69 16 138/79 (98) 97 08/19/17 00:00 Room Air 08/18/17 23:00 36.4 61 18 137/85 (102) 97 Room Air 08/18/17 16:00 Room Air Physical Exam General Appearance: no apparent distress ENT: + pertinent finding (L side of the face has decreased swelling) Respiratory/Chest: no respiratory distress, no accessory muscle use Laboratory Results Last 24 Hours Test 08/19/17 06:51 White Blood Count 4.07 K/uL Red Blood Count 4.73 M/uL Hemoglobin 14.8 g/dL Hematocrit 41.8 % Mean Corpuscular Volume 88.4 fL Mean Corpuscular Hemoglobin 31.3 pg Mean Corpuscular Hemoglobin Concent 35.4 g/dl RDW Standard Deviation 44.9 fL RDW Coefficient of Variation 13.9 % Platelet Count 290 K/uL Mean Platelet Volume 8.8 fL Sodium Level 139 mmol/L Potassium Level 3.9 mmol/L Chloride Level 101 mmol/L Carbon Dioxide Level 31 mmol/L Anion Gap 7.0 mmol/L Blood Urea Nitrogen 12 mg/dl Creatinine 0.75 mg/dl Est Creatinine Clear Calc Drug Dose 77.3 ml/min Estimated GFR () 100.4 Estimated GFR (Non- 86.6 BUN/Creatinine Ratio 16.3 Random Glucose 99 mg/dl Calcium Level 8.9 mg/dl Assessment and Plan This is a 62 year old female with a PMH of depression and hypothyroidism presents with dental infection and worsening swelling/pain Odontogenic Abscess and Cellulitis 08/19 plan for d/c today will d/c with Clindamycin for the next five days will also d/c with prescription for Percocet outpatient f/u with dentist 08/18 plan is to continue IV Clinda for today continue pain medications as needed plan for repeat maxillofacial CT to follow-up on the abscess plan to d/c in 1-2 days on oral clindamycin with outpatient dental follow-up 08/17 patient with periapical abscess - facial CT started on IV clindamycin, with clinical improvement we will monitor and possible discharge on clindamycin with outpatient dental consultation if no improvement, may need maxillofacial surgery to examine the patient continue Percocet PRN for pain, which has been successful thus far Depression continue home mediations Hypothyroidism continue Synthroid Asthma continue Symbicort DVT ppx Lovenox FULL CODE
--- NOTE | 2017-08-19 12:28 | Discharge Instructions ---
Discharge Instructions Date of Service Aug 19, 2017. Admission Reason for Admission: Facial Cellulitis Discharge Discharge Diagnosis / Problem: Dental Abscess, Facial Cellulitis Discharge Goals Goal(s): Decrease discomfort, Improve function, Diagnostic testing, Therapeutic intervention Activity Recommendations Activity Limitations: per Instructions/Follow-up section . Instructions / Follow-Up Instructions / Follow-Up Please follow-up with Dr. Aguilar on August 23 at 10:45AM Please follow-up with your dentist on August 25 as scheduled * You will be on Clindamycin (antibiotic) - take this three times daily for the next five days * You will be prescribed Percocet - you can take this every six hours as needed for pain - if you take this, do not drive Current Hospital Diet Patient's current hospital diet: Regular Diet Discharge Diet Recommended Diet: Regular Diet Pending Studies Studies pending at discharge: no Medical Emergencies . Who to Call and When: Medical Emergencies: If at any time you feel your situation is an emergency, please call 911 immediately. . Non-Emergent Contact Non-Emergency issues call your: Primary Care Provider, Specialist (dentist) Call Non-Emergent contact if: you have a fever, temperature is above 100.5, your pain is not controlled, your pain is worsening, your pain is concerning you . . "Provider Documentation" section prepared by Haydee Jacques. . VTE Core Measure Inpt VTE Proph given/why not?: Enoxaparin (Lovenox) [place] Drug Monitoring Program Search Results: patient reviewed within database, no issues identified
--- NOTE | 2017-08-19 12:29 | Discharge Summary ---
Discharge Summary Date of Service Aug 19, 2017. Discharge Summary Admission Date: Aug 17, 2017 at 03:28 Discharge Date: Aug 19, 2017 Discharge Disposition: Home Principal Diagnosis: Odontogenic Abscess with associated Facial Cellulitis Medication Reconciliation New Medications: Clindamycin HCl (Clindamycin HCl) 150 Mg Cap 300 MG PO Q8 for 5 Days, #30 TABS Oxycodone/Acetaminophen 5MG/325MG (Percocet 5MG/325MG) Tab 1 TABLET PO Q6H PRN for Pain for 5 Days, #20 TAB Continued Medications: Albuterol Hfa (Ventolin Hfa) 200 Puffs/51862 Mcg Aers 2 PUFFS INH Q6H PRN for SOB/Wheezing Budesonide/Formoterol Fumarate (Symbicort 160/4.5 Inhaler) 120 Puffs/ Aero 1 PUFF INH BID PRN for SOB/Wheezing Bupropion Hcl (Bupropion Hcl Er) 100 Mg Tab 100 MG PO BID Fluticasone Propionate (Nasal) (Flonase Allergy Relief) 50 Mcg/Act Spr 2 SPRAY NA DAILY Levothyroxine Sodium (Synthroid) 75 Mcg Tab 75 MCG PO QAM Lorazepam (Lorazepam) 0.5 Mg Tab 0.5 MG PO DAILY PRN for Anxiety, #30 Multivitamin (Multivitamin) Tab 1 TAB PO QAM, 0 Refills Omeprazole (Prilosec) 20 Mg Capcr 20 MG PO DAILY PRN for Heartburn, 0 Refills Venlafaxine Hcl (Venlafaxine Hcl Er) 75 Mg Tab 75 MG PO DAILY Zolpidem Tartrate (Zolpidem Tartrate) 5 Mg Tab 5 MG PO HS PRN for Insomnia Discontinued Medications: Amoxicillin (Amoxil) 500 Mg Cap 500 MG PO TID for 10 Days Admission Information HPI (per Admitting provider): 62 yo F presents with worsening facial pain and swelling after dental procedure earlier today. She reports that pain in her upper jaw area began on SAt (two days ago). Swelling began 24 hours ago and with the pain, she went into her dentist emergently and states that he saw alot of infection and left her with an open root canal. She was sent home with Amoxicillin of which she too two. She then developed a fever that concerned her, and in addition, states that the vicodin she was given did not control her pain well. She was hemodynamically stable and afebrile in the ER but looked uncomfortable so was given Dilaudid 1mg. She dropped her oxygen saturation in response to this and required supplementation. She does have some problems swallowing at baseline but denies any trouble breathing and states that her neck is not swollen and there is no involvement with her eye. She reports a cough two weeks ago but this has since resolved. She otherwise has no symptoms and is on a soft mechanical diet. Physical Exam (per Admitting): General Appearance: WD/WN, no apparent distress Head: normocephalic, atraumatic Eyes: normal inspection, PERRL, sclerae normal ENT: + pertinent finding (L facial swelling with warmth and erythema in the localized area, no redness spreading into the eye or under the chin, no SM LAD, significant swelling in soft palate on L and swelling of pharynx without erythmea. No evidence of pus or open wound) Neck: supple, no adenopathy, trachea midline Respiratory/Chest: lungs clear, normal breath sounds, no respiratory distress, no accessory muscle use Cardiovascular: regular rate, rhythm, no edema, no gallop, no JVD, no murmur , normal peripheral pulses Abdomen/GI: normal bowel sounds, non tender, soft Extremities/Musculoskelatal: normal inspection, no pedal edema Neurologic/Psych: leather roller II-XII nml as tested, no motor/sensory deficits, alert , normal mood/affect, oriented x 3 Skin: normal color, warm/dry, no rash, + pertinent finding (facial swelling as above. ) Hospital Course This is a 62 year old female with a PMH of depression and hypothyroidism presents with dental infection and worsening swelling/pain Odontogenic Abscess and Cellulitis 08/19 plan for d/c today will d/c with Clindamycin for the next five days will also d/c with prescription for Percocet outpatient f/u with dentist 08/18 plan is to continue IV Clinda for today continue pain medications as needed plan for repeat maxillofacial CT to follow-up on the abscess plan to d/c in 1-2 days on oral clindamycin with outpatient dental follow-up 08/17 patient with periapical abscess - facial CT started on IV clindamycin, with clinical improvement we will monitor and possible discharge on clindamycin with outpatient dental consultation if no improvement, may need maxillofacial surgery to examine the patient continue Percocet PRN for pain, which has been successful thus far Depression continue home mediations Hypothyroidism continue Synthroid Asthma continue Symbicort DVT ppx Lovenox FULL CODE Total time spent on discharge = 40 minutes This includes examination of the patient, discharge planning, medication reconciliation, and communication with other providers. Discharge Instructions Please follow-up with Dr. Aguilar on August 23 at 10:45AM Please follow-up with your dentist on August 25 as scheduled * You will be on Clindamycin (antibiotic) - take this three times daily for the next five days * You will be prescribed Percocet - you can take this every six hours as needed for pain - if you take this, do not drive
[2017-08-19 12:52] VITALS: BP 138/79; PULSE 69; TEMP 36.6; O2SAT 97
== END 2017-08-19 13:10 | disposition home or self-care (01) | DRG 158 ==
LOC: C.EDB 00:04 → C.MS4W 03:28 → ENRESERV 03:43
PROVIDERS: ADMIT Hospitalist; ATTEND Family Medicine
DX: K04.7 Periapical abscess without sinus (principal); L03.211 Cellulitis of face; R09.02 Hypoxemia; T40.2X5A Adverse effect of other opioids, initial encounter; Y95 Nosocomial condition; E03.9 Hypothyroidism, unspecified; F32.9 Major depressive disorder, single episode, unspecified; J45.909 Unspecified asthma, uncomplicated; Z83.3 Family history of diabetes mellitus; Z82.49 Family history of ischemic heart disease and other diseases of the circulatory system; Z88.2 Allergy status to sulfonamides; Z88.5 Allergy status to narcotic agent